=== PATIENT | male | born 1970 | race Caucasian/White ===

== ENCOUNTER 2017-06-04 14:44 | Emergency (ER) | payer SELFPAY ==
--- NOTE | 2017-06-04 15:12 | Emergency Department Report ---
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 He said he fell and while was falling and he hit is left leg against something and he has a cut with bruising. He said he is having redness and swelling and pain at 6 out of 10 that feels sore. Denies any fever or chills. Denies any head injury. Denies any neck pain or back pain. Patient said he landed on his back. Denies any loss of bowel or bladder control. Denies any numbness or tingling to extremities. - ROS Review of Systems: All systems are negative unless stated in HPI above - Exam Vital Signs: Vital Signs 06/04/17 14:50 Temperature 98.5 F Pulse Rate 74 Respiratory 18 Rate Blood Pressure 114/70 O2 Sat by Pulse 99 Oximetry Physical Exam: Gen.: This is a 46-year-old male well-nourished well-developed in no acute distress. Extremity. Positive swelling, no cyanosis or clubbing to left lower extremity otherwise all extremities or normal. +2 pulses to all extremities. Patient has positive ecchymosis to left leg extending down to left foot. +1 to left mid leg. Tender to palpate. Neck: No C-spine tenderness, full range of motion , supple. Back: No vertebral tenderness or paraspinal tenderness. No bruising noted to back. He is able to ambulate without any difficulties. MSE screening note: Focused history and physical exam performed. Due to findings the following was ordered: ED Medical Decision Making - Medical Decision Making MDM: Patient screened by provider in triage area. Appropriate protocol initiated and patient to be seen in main ED by ED Disposition for MSE Condition: Stable
[2017-06-04 15:36] LABS: Basophils % (Auto) 0.4 % (0.0-1.8); Eosinophils % (Auto) 1.5 % (0.0-4.3); Hematocrit 43.5 % (35.5-45.6); Hemoglobin 14.6 gm/dl (11.8-15.2); Mean Corpuscular HGB Conc 34 % (32-34); Mean Corpuscular Hemoglobin 28 pg (28-32); Mean Corpuscular Volume 83 fl (84-94); Platelet Count 186 K/mm3 (140-440); Red Blood Count 5.25 M/mm3 (3.65-5.03); Red Cell Distribution Width 13.9 % (13.2-15.2); White Blood Count 5.3 K/mm3 (4.5-11.0)
[2017-06-04 15:45] LABS: Anion Gap 16 mmol/L; BUN/Creatinine Ratio 20; Blood Urea Nitrogen 14 mg/dL (9-20); Calcium 9.1 mg/dL (8.4-10.2); Carbon Dioxide 25 mmol/L (22-30); Glucose 72 mg/dL (75-100); INR 1.05 (0.87-1.13); Partial Thromboplastin Time 31.2 Sec. (24.2-36.6); Potassium 3.9 mmol/L (3.6-5.0); Sodium 137 mmol/L (137-145)
--- NOTE | 2017-06-04 16:32 | XRay Report ---
LEFT FOOT RADIOGRAPHS INDICATION: Fall with left foot injury. COMPARISON: None similar. FINDINGS: AP, lateral and oblique views of the left foot demonstrate normal bones, joints and soft tissues. CONCLUSION: No acute bony abnormality. Thank you for the opportunity to participate in this patient's care.
--- NOTE | 2017-06-04 16:35 | XRay Report ---
LEFT TIBIA AND FIBULA RADIOGRAPHS INDICATION: Fall with left leg injury. COMPARISON: None similar. FINDINGS: AP and lateral left tibia and fibula radiographs demonstrate intact bones. Mild ankle soft tissue swelling medially not entirely excluded. Included knee and ankle articulations appear unremarkable. CONCLUSION: No acute bony abnormality with slight left ankle soft tissue swelling medially questioned, as described. Please correlate. Thank you for the opportunity to participate in this patient's care.
[2017-06-04 21:28] VITALS: BP 107/72
[2017-06-04] MEDS ORDERED: BACTRIM DS PO ONE (22:23)
[2017-06-04] MEDS ORDERED: BOOSTRIX IM ONE (22:25)
[2017-06-04] MEDS ORDERED: NORCO 7.5/325 PO ONE (22:26)
--- NOTE | 2017-06-04 23:53 | Emergency Department Report ---
HPI - General Chief Complaint: Extremity Injury, Lower Time Seen by Provider: 06/04/17 15:11 - HPI HPI: The patient's 46-year-old male who presents for evaluation of left leg pain. The patient reports pain to the left lower leg since fall 4 days ago. He states that his pain is 8/10 in severity, throbbing in quality, exacerbated with stimulation or movement of the left lower leg, and improved removal of weightbearing from the leg and rest. He also complains of associated swelling at the site of injury. He denies trauma or injury elsewhere, headache, chest pain, abdominal pain, back pain, dyspnea, puncture wound, purulent drainage or discharge, paresthesia, loss of motor function in the left leg or foot. ED Past Medical Hx - Past Medical History Previous Medical History?: No - Surgical History Past Surgical History?: No - Social History Smoking Status: Never Smoker Substance Use Type: None - Medications Home Medications: Home Medications Medication Instructions Recorded Confirmed Last Taken Type HYDROcodone/ACETAMINOPHEN [Milton 1 each PO Q8HR #20 tablet 06/04/17 Unknown Rx 7.5-325 Tablet] Sulfamethoxazole/Trimethoprim 1 each PO BID #14 tablet 06/04/17 Unknown Rx [Bactrim DS TAB] ED Review of Systems ROS: Stated complaint: POSS INFECTION LFT FOOT/BRYANT Other details as noted in HPI Constitutional: denies: fever ENT: denies: throat or neck pain Respiratory: denies: cough, shortness of breath Cardiovascular: denies: chest pain Endocrine: denies unexplained weight loss or gain Gastrointestinal: denies: abdominal pain, nausea Genitourinary: denies: dysuria Musculoskeletal: reports leg pain and swelling Skin: denies: rash Neurological: denies: headache Hematological/Lymphatic: denies: easy bleeding or easy bruising Psych: denies sadness or hopelessness Physical Exam - Physical Exam Vital Signs: Vital Signs 06/04/17 06/04/17 06/04/17 14:50 21:28 21:29 Temperature 98.5 F 97.7 F Pulse Rate 74 62 Respiratory 18 62 H 14 Rate Blood Pressure 114/70 Blood Pressure 107/72 [Right] O2 Sat by Pulse 99 96 96 Oximetry Physical Exam: General: well-nourished, well-developed, no acute distress Head: Normocephalic, atraumatic Eyes: normal sclera ENT: Mucous membranes are pink and moist Neck: trachea midline, neck supple, No neck stiffness, no cervical adenopathy Respiratory: Breath sounds equal bilaterally, no wheezing, rales, or rhonchi Cardio: S1 and S2 present, no murmurs, rubs, gallops, capillary refill is brisk Abdomen: Normoactive bowel sounds, soft abdomen, no tenderness Chest WALL/Back: No tenderness to palpation of the chest wall, no CVA tenderness with percussion Musc: Tenderness and swelling present to the left mid bryant, no knee or ankle tenderness, no joint ligament laxity in the knee or ankle, distal pulses, sensation, motor function intact the left ankle, foot, and toes Skin: No rash Neuro: no facial drooping, normal speech Psych: Normal affect ED Course Vital Signs 06/04/17 06/04/17 06/04/17 14:50 21:28 21:29 Temperature 98.5 F 97.7 F Pulse Rate 74 62 Respiratory 18 62 H 14 Rate Blood Pressure 114/70 Blood Pressure 107/72 [Right] O2 Sat by Pulse 99 96 96 Oximetry ED Medical Decision Making - Lab Data Result diagrams: 06/04/17 15:18 06/04/17 15:18 - Medical Decision Making The patient was seen and examined by myself. 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 On initial evaluation, the patient was found to be in no distress. Evaluation orders were placed. The patient is given pain medicine and a tetanus immunization. X-ray of the left leg is negative for fracture or dislocation. Ultrasound of the left leg is negative for DVT. The patient was reevaluated and reported that their symptoms were markedly improved. The patient is stable for discharge with outpatient follow- up. The patient is given follow-up and return instructions. The patient expressed understanding and agreed with the plan. The patient is discharged in stable condition. Critical care attestation.: If time is entered above; I have spent that time in minutes in the direct care of this critically ill patient, excluding procedure time. ED Disposition Clinical Impression: Pain in right lower leg, Cellulitis of right lower leg Disposition: TO HOME OR SELFCARE Is pt being admited?: No Does the pt Need Aspirin: No Condition: Stable Instructions: Cellulitis (ED), Contusion in Adults (ED), Musculoskeletal Pain ( ED) Prescriptions: HYDROcodone/ACETAMINOPHEN [Milton 7.5-325 Tablet] 1 each PO Q8HR #20 tablet Sulfamethoxazole/Trimethoprim [Bactrim DS TAB] 1 each PO BID #14 tablet Referrals: PRIMARY CARE, [Primary Care Provider] - 3-5 Days Time of Disposition: 23:46
--- NOTE | 2017-06-05 16:21 | Vascular Lab Report ---
Left Lower Extremity Venous Duplex Study: Reason for Exam: swelling of the left lower extremity. Comments on the Right: A limited duplex study was done of the proximal veins of the right lower extremity. All veins visualized are freely compressible without evidence of internal echogenicity. Flow is spontaneous and phasic throughout. No evidence of acute or chronic thrombus is seen in any of the vessels visualized. Comments on the Left: All veins visualized are freely compressible without evidence of internal echogenicity. Flow is spontaneous and phasic throughout. No evidence of acute or chronic thrombus is seen in any of the vessels visualized. Impression: No evidence of acute or chronic deep venous thrombosis in the left lower extremity.
== END 2017-06-05 00:12 | disposition home or self-care (01) ==
LOC: ED 14:44
DX: L03.116 Cellulitis of left lower limb (principal)
CPT/HCPCS: 36415; 80048; 85025; 85610; 85730; 90471; 90715; 99285